=== PATIENT | male | born 1955 | race Two or more races ===

== ENCOUNTER 2023-06-04 12:59 | Inpatient (IN) | payer MEDICAID, OTHER ==
[~2023-06-04] VITALS: Ht 172.7 cm; Wt 75.0 kg
[2023-06-04] MEDS ORDERED: ACETAMINOPHEN 325 MG TAB PO PRN ×2 (13:30→16:30)
[2023-06-04] MEDS ORDERED: PANTOPRAZOLE 40 MG/10 ML VIAL INJ IV ONE (13:30)
[2023-06-04] MEDS ORDERED: SODIUM CHLORIDE 0.9% 2,250 ML IV ONE (13:30)
[2023-06-04] MEDS ORDERED: ALBUMIN 25% 100 ML IV ONE (13:30)
[2023-06-04] MEDS ORDERED: ONDANSETRON HCL 4 MG/2 ML VIAL IV ONE (13:30)
[2023-06-04 13:32] VITALS: PULSE 68; RESP 16; O2SAT 96
[2023-06-04 13:37] LABS: Basophils # (auto) 0 10 ^3/uL (0-0.2); Basophils % (auto) 0.2 % (0.0-2.0); Eosinophils # (auto) 0 10 ^3/uL (0-0.8); Eosinophils % (auto) 0.1 % (0.0-7.0); Hemoglobin 14.4 g/dL (13.5-17.5); Lymphocytes # (auto) 1.6 10 ^3/uL (0.4-5.4); Lymphocytes % (auto) 9.7 % (10.0-50.0); Mean Corpuscular Hemoglobin 29.1 pg (28.0-32.0); Mean Corpuscular Volume 91.1 fL (80.0-100.0); Monocytes # (auto) 1.5 10 ^3/uL (0-1.3); Monocytes % (auto) 8.8 % (0.0-12.0); Neutrophils # (auto) 13.5 10 ^3/uL (1.6-8.6); Neutrophils % (auto) 81.2 % (37.0-80.0); Nucleated Red Blood Cells % 0.1 %; Red Blood Cells 4.94 10^6/uL (4.5-5.90); Red Cell Distribution Width 14.9 % (11.8-14.3); White Blood Cell 16.6 10^3/uL (4.4-10.8)
[2023-06-04 13:56] LABS: Blood Alcohol < 3.0 mg/dL (<10)
[2023-06-04 13:57] LABS: Alanine Aminotransferase 13 U/L (7-40); Albumin 4.4 g/dL (3.2-4.8); Alkaline Phosphatase 79 U/L (46-116); Anion Gap 12.1 (5-15); Aspartate Aminotransferase < 8 U/L (13-40); BUN/Creatinine Ratio 18.5 (10.0-20.0); Bilirubin, Total 0.5 mg/dL (0.2-1.0); Blood Urea Nitrogen 36 mg/dL (9-23); Calcium 9.6 mg/dL (8.5-10.1); Carbon Dioxide 21.9 mmol/L (20-30); Chloride 105 mmol/L (98-107); Glucose 119 mg/dL (74-106); Potassium 4.1 mmol/L (3.5-5.1); Sodium 139 mmol/L (136-145); Total Protein 7.1 g/dL (5.7-8.2)
[2023-06-04] MEDS ORDERED: PIPERACILLIN-TAZO 4.5GM 100 ML IV SCH (14:00)
[2023-06-04 14:01] LABS: INR 1.04 (0.9-1.15); Partial Thromboplastin Time 27.4 SEC (24.5-34.5); Prothrombin Time 10.9 sec (9.3-11.8)
[2023-06-04] MEDS ORDERED: VANCOMYCIN PER PHARMACY 0 MG IV SCH ×2 (14:45→16:45)
[2023-06-04 14:46] LABS: Lactic Acid w/Reflex 3.3 mmol/L (0.4-2.0)
[2023-06-04] MEDS ORDERED: VANCOMYCIN 1GM/250ML 250 ML IV ONE ×2 (15:00→19:00)
[2023-06-04 16:30] VITALS: BP 120/70; PULSE 74; RESP 16; TEMP 98.5; O2SAT 98
[2023-06-04] MEDS ORDERED: NITROGLYCERIN 0.4 MG SL TAB SL PRN (16:30)
[2023-06-04] MEDS ORDERED: MORPHINE SULFATE INJ 2 MG/ml SYRG IV PRN (16:30)
[2023-06-04 17:01] LABS: Urine Bacteria NONE SEEN /hpf (None Seen); Urine Blood Negative /uL (Negative); Urine Clarity Clear (Clear); Urine Color Colorless (Yellow); Urine Protein, UAD 1+ (Negative); Urine Urobilinogen Normal (Negative); Urine WBC 2 /hpf (0 - 3); Urine pH 6.5 (5.0-8.0)
[2023-06-04 17:16] LABS: Amphetamine Screen, Urine Neg (NEGATIVE); Barbiturate Scree,Urine Neg (NEGATIVE); Benzodiazephine Screen, Urine Neg (NEGATIVE); Cannabinoid Screen, Urine Neg (NEGATIVE); Cocaine Screen, Urine Neg (NEGATIVE); Opiate Scree,Urine Neg (NEGATIVE); Phencyclidine Screen, Urine Neg (NEGATIVE)
[2023-06-04] MEDS ORDERED: CEFEPIME 1GM/ 50ML 50 ML IV SCH (22:00)
[2023-06-05] MEDS ORDERED: PANTOPRAZOLE 40 MG TAB PO SCH (10:00)
== END 2023-06-04 18:00 | disposition left against medical advice (07) | DRG 720 ==
LOC: ER 12:59 → TELE 16:37
PROVIDERS: ADMIT Nurse Practitioner Family; ATTEND Nurse Practitioner Family
DX: A41.9 Sepsis, unspecified organism (principal); N17.0 Acute kidney failure with tubular necrosis; E86.0 Dehydration; E78.5 Hyperlipidemia, unspecified; I10 Essential (primary) hypertension; R55 Syncope and collapse; Z53.29 Procedure and treatment not carried out because of patient's decision for other reasons; Z87.891 Personal history of nicotine dependence
CPT/HCPCS: 36415; 70450; 71045; 80053; 80307; 80320; 81001; 82550; 83605; 83690; 83735; 83880; 84443; 84484; 85025; 85610; 85730; 86850; 86900; 86901; 87040; 87086; 93005; 93306; 96365; 96367; 96375; C9113; G0378; J2405; J2543; P9047